=== PATIENT | female | born 1995 | race Two or more races ===

== ENCOUNTER 2023-03-01 16:52 | Emergency (ER) | payer OTHER, MEDICAID ==
[~2023-03-01] VITALS: Ht 162.6 cm; Wt 90.9 kg
[2023-03-01] MEDS ORDERED: DOXY100T21 PO (17:05)
[2023-03-01] MEDS ORDERED: IBUPROFEN 600 MG TABLET PO ONE (18:00)
[2023-03-01] MEDS ORDERED: IBUP-1554 PO (19:09)
[2023-03-01 20:36] VITALS: BP 129/66; PULSE 75; RESP 16; TEMP 97.3
== END 2023-03-01 20:52 | disposition home or self-care (01) ==
LOC: EMS 16:55
DX: R07.89 Other chest pain (principal)
CPT/HCPCS: 71046; 99283

== ENCOUNTER 2023-03-21 14:40 | Emergency (ER) | payer MEDICAID, OTHER ==
[~2023-03-21] VITALS: Ht 154.9 cm; Wt 84.1 kg
[~2023-03-21 14:40] MED LIST: DOXY100T21 PO; IBUP-1554 PO
[2023-03-21 14:46] VITALS: TEMP 98.1
[2023-03-21 16:20] LABS: BASOPHILS % (AUTO) 0.8 % (0.0-2.0); EOSINOPHILS % (AUTO) 1.2 % (1.0-6.0); HEMATOCRIT 36.1 % (36-46); HEMOGLOBIN 11.6 g/dL (12.0-16.0); LYMPHOCYTES # (AUTO) 2.4 K/uL (1.0-4.8); LYMPHOCYTES % (AUTO) 25.6 % (22.0-44.0); MEAN CORPUSCULAR HEMOGLOBIN 27.3 pg (26.0-34.0); MEAN CORPUSCULAR VOLUME 85 fL (80-100); MONOCYTES # (AUTO) 0.4 K/uL (0.1-1.0); MONOCYTES % (AUTO) 4.5 % (2.0-9.0); NEUTROPHILS # (AUTO) 6.4 K/uL (1.8-7.7); NEUTROPHILS % (AUTO) 67.9 % (40.0-70.0); PLATELET COUNT (AUTO) 316 K/uL (150-450); RED BLOOD CELL COUNT(AUTO) 4.23 MIL/uL (4.00-5.20); RED CELL DISTRIBUTION WIDTH 14.2 % (11.5-14.5); WHITE BLOOD COUNT (AUTO) 9.4 K/uL (4.5-11.0)
[2023-03-21 16:31] LABS: ANION GAP 6 mmol/L (8-16); CALCIUM, TOTAL 8.4 mg/dL (8.8-10.5); CARBON DIOXIDE 27 mmol/L (22-29); CHLORIDE 106 mmol/L (98-107); CREATININE 0.69 mg/dL (0.60-1.30); GLOMERULAR FILTR. RATE CALC > 60 mL/min (>60); GLUCOSE,RANDOM 108 mg/dL (70-110); POTASSIUM 3.5 mmol/L (3.5-5.1); SODIUM SERUM 139 mmol/L (136-145); UREA NITROGEN, BLOOD 15 mg/dL (7-18)
[2023-03-21] MEDS: SODIUM CHLORIDE 0.9% 1,000 ML IV ONE (16:32)
[2023-03-21] MEDS: ONDANSETRON HCL 4 MG/2 ML VIAL IVP ONE (16:32)
[2023-03-21] MEDS: ACETAMINOPHEN 500 MG TABLET PO ONE (16:32)
[2023-03-21 16:35] LABS: ALANINE AMINOTRANSFERASE 21 U/L (12-78); ALBUMIN 3.3 g/dL (3.4-5.0); ALKALINE PHOSPHATASE 92 U/L (46-116); ASPARTATE AMINOTRANSFERASE 20 U/L (15-37); BILIRUBIN,TOTAL 0.5 mg/dL (0.1-1.0); LIPASE 25 U/L (16-77)
[2023-03-21] MEDS: DIPHENOXYLATE/ATROP 2.5-0.025 MG TABLET PO ONE (16:37)
[2023-03-21] MEDS ORDERED: ACET-66 PO (17:21)
[2023-03-21] MEDS ORDERED: DIPH-654 PO (17:21)
[2023-03-21] MEDS ORDERED: ONDA-104 PO (17:21)
[2023-03-21] MEDS ORDERED: OMEP20 PO (17:21)
[2023-03-21 17:53] VITALS: BP 112/70; PULSE 64; RESP 16
== END 2023-03-21 18:04 | disposition home or self-care (01) ==
LOC: EMS 14:40
DX: K52.9 Noninfective gastroenteritis and colitis, unspecified (principal); A05.9 Bacterial foodborne intoxication, unspecified; R10.30 Lower abdominal pain, unspecified
CPT/HCPCS: 99283; 96374; 96361; 80053; 83690; 84703; 85025; 36415; J2405; J7030